=== PATIENT | male | born 1940 | race Caucasian/White ===

== ENCOUNTER → 2016-08-26 | Outpatient (CLI) | payer MEDICARE ==
[~2016-08-26] MED LIST: AMOXICILLIN 50500 MG PO; CARVEDILOL12.5 MG PO; DICLOFENAC 50MG50 MG PO; DULCOLAX 5MG TAB5 MG PO; ECOTRIN81 MG PO; FISH OIL1000 MG PO; K + POTASSIUM20 MEQ PO; MAGNESIUM CITRA1 BOT PO; OMEPRAZOLE20 MG PO; PREDNISONE 20MG20 MG PO; SIMVASTATIN80 MG PO; VITAMIN B121000 MC1 PO
--- NOTE | 2016-08-26 12:54 | RADIOLOGY REPORT PS360 ---
EXAM: LUMBAR SPINE 5 VIEWS HISTORY: Low back pain following an injury LUMBAGO WITH SCIATICA ORDERING PHYSICIAN: MARIA ISABEL Bartholomew PATIENT AGE: 76 years COMPARISON: 10/08/2012 FINDINGS: Mild levoscoliosis slightly increased compared to the previous exam with mild wedging along the right lateral aspect of L2 and bony hypertrophic changes of the endplates at L1, L2, L3, L4. No acute fracture or dislocation. There is generalized osteopenia with degenerative disc disease from L1 to S1. IMPRESSION: 1. No acute finding. 2. Scoliosis with spondylosis as described above which is slightly worse compared to the previous exam
--- NOTE | 2016-08-26 12:57 | RADIOLOGY REPORT PS360 ---
HIP RT 2-3V W/PELVIS IF PERFOR HISTORY: LUMBAGO WITH SCIATICA ORDERING PHYSICIAN: MARIA ISABEL Bartholomew PATIENT AGE: 76 years COMPARISON: 10/07/2007 FINDINGS: No definite acute fracture or dislocation is evident. There is minimal valgus angulation of the femur at the femoral neck. This however had a somewhat similar appearance on previous KUB of 10/07/2007. A fracture is not felt to be likely however, if symptoms persist, a CT be of further value to confirm that this is a chronic finding. There are mild adjacent changes of the right hip. Otherwise negative. IMPRESSION: 1. No definite acute finding. 2. Mild osteoarthritic change with minimal varus angulation of the femur which is felt to be chronic. No definite acute fracture. If symptoms persist, recommend confirmation with CT
== END ==
LOC: RAD 11:28
DX: M54.41 Lumbago with sciatica, right side (principal); M25.551 Pain in right hip